=== PATIENT | female | born 1975 | race Two or more races ===

== ENCOUNTER 2017-02-06 21:28 | Emergency (ER) | payer OTHER ==
[~2017-02-06] VITALS: Ht 162.6 cm; Wt 122.5 kg
[~2017-02-06 21:28] MED LIST: VASOTEC2.5 MG PO
[2017-02-07] MEDS ORDERED: IMODIUM A-D2 M2 PO (06:25)
[2017-02-07] MEDS ORDERED: PEPCID40 MG PO (06:25)
[2017-02-07] MEDS ORDERED: ZOFRAN4 MG PO (06:25)
== END 2017-02-07 07:30 | disposition home or self-care (01) ==
LOC: ER 21:28
DX: K52.89 Other specified noninfective gastroenteritis and colitis (principal)

== ENCOUNTER 2017-09-17 15:44 | Emergency (ER) | payer OTHER ==
[~2017-09-17] VITALS: Ht 165.1 cm; Wt 122.5 kg
[~2017-09-17 15:44] MED LIST changes: +IMODIUM A-D2 M2 PO; +PEPCID40 MG PO; +ZOFRAN4 MG PO
[2017-09-17] MEDS ORDERED: HYDROCHLOROTHIA25 MG (16:09)
== END 2017-09-17 19:54 | disposition home or self-care (01) ==
LOC: ER 15:44
DX: I10 Essential (primary) hypertension (principal)

== ENCOUNTER 2017-10-18 09:05 | Outpatient (CLI) | payer OTHER ==
[~2017-10-18 09:05] MED LIST changes: +HYDROCHLOROTHIA25 MG
== END 2017-10-18 11:10 | disposition home or self-care (01) ==
LOC: RAD 09:05
DX: M25.561 Pain in right knee (principal)

== ENCOUNTER 2017-10-25 06:25 | Outpatient (CLI) | payer OTHER | END 2017-10-25 06:31 | disposition home or self-care (01) | LOC: LAB 06:25 | DX: I10 Essential (primary) hypertension (principal); E78.4 Other hyperlipidemia ==

== ENCOUNTER 2017-10-30 10:35 | Outpatient (CLI) | payer OTHER | END 2017-10-30 16:40 | disposition home or self-care (01) | LOC: MRI 10:35 | DX: M25.571 Pain in right ankle and joints of right foot (principal) | CPT/HCPCS: 73721 ==

== ENCOUNTER 2018-01-15 06:46 | Emergency (ER) | payer OTHER ==
[~2018-01-15] VITALS: Ht 165.1 cm; Wt 117.9 kg
== END 2018-01-15 08:59 | disposition home or self-care (01) ==
LOC: ER 06:46
DX: S80.871A Other superficial bite, right lower leg, initial encounter (principal); W54.0XXA Bitten by dog, initial encounter; Y93.89 Activity, other specified; Y92.89 Other specified places as the place of occurrence of the external cause; Y99.8 Other external cause status

== ENCOUNTER → 2018-08-02 16:48 | Outpatient (CLI) | payer OTHER | END | disposition home or self-care (01) | LOC: LAB 08-01 14:45 | DX: M54.5 Low back pain (principal); I10 Essential (primary) hypertension; N85.8 Other specified noninflammatory disorders of uterus; E66.8 Other obesity ==

== ENCOUNTER → 2019-03-26 06:43 | Outpatient (CLI) | payer OTHER | END | disposition home or self-care (01) | LOC: LAB 06:43 | DX: M54.5 Low back pain (principal); M85.9 Disorder of bone density and structure, unspecified; E66.8 Other obesity; I10 Essential (primary) hypertension ==

== ENCOUNTER 2019-08-04 13:39 | Outpatient (CLI) | payer OTHER | END 2019-08-04 14:09 | disposition home or self-care (01) | LOC: SONOGRAMA 13:39 | PROVIDERS: ATTEND Specialist | DX: M79.89 Other specified soft tissue disorders (principal) ==

== ENCOUNTER → 2019-09-09 06:12 | Outpatient (CLI) | payer OTHER | END | disposition home or self-care (01) | LOC: LAB 06:12 | PROVIDERS: ATTEND Specialist | DX: U07.1 COVID-19 (principal); D17.22 Benign lipomatous neoplasm of skin and subcutaneous tissue of left arm; Z01.812 Encounter for preprocedural laboratory examination; I10 Essential (primary) hypertension; Z11.59 Encounter for screening for other viral diseases ==

== ENCOUNTER 2019-10-23 08:00 | Outpatient (CLI) | payer OTHER | END 2019-10-23 15:44 | disposition home or self-care (01) | LOC: PPH VACUNA 08:00 | DX: Z23 Encounter for immunization (principal) ==

== ENCOUNTER 2020-06-06 19:40 | Emergency (ER) | payer OTHER ==
[~2020-06-06] VITALS: Ht 165.1 cm; Wt 127.0 kg
[2020-06-06] MEDS ORDERED: ATACAND HCT 161 EACH (19:53)
[2020-06-06] MEDS ORDERED: SKELAXIN800 MG PO (22:58)
[2020-06-06] MEDS ORDERED: NAPROXEN375 MG PO (22:58)
== END 2020-06-06 23:16 | disposition home or self-care (01) ==
LOC: ER 19:40
DX: M62.838 Other muscle spasm (principal); M54.89 Other dorsalgia

== ENCOUNTER → 2020-11-02 | Outpatient (CLI) | payer OTHER ==
[~2020-11-02] MED LIST changes: +ATACAND HCT 161 EACH; +NAPROXEN375 MG PO; +SKELAXIN800 MG PO
== END | disposition home or self-care (01) ==
LOC: PPH VACUNA 08:00
PROVIDERS: ATTEND Emergency Medicine Pediatric Emergency Medicine
DX: Z23 Encounter for immunization (principal)

== ENCOUNTER 2020-12-06 08:00 | Outpatient (CLI) | payer OTHER | END 2020-12-06 08:30 | disposition home or self-care (01) | LOC: PPH VACUNA 08:00 | PROVIDERS: ATTEND Emergency Medicine Pediatric Emergency Medicine | DX: Z23 Encounter for immunization (principal) ==